=== PATIENT | male | born 1960 | race Hispanic/Latino ===

== ENCOUNTER 2019-11-01 13:19 | Outpatient (CLI) | payer BC ==
--- NOTE | 2019-11-01 15:20 | CT ---
CT Abdomen W WO Con HISTORY: Neoplasm of uncertain behavior right kidney COMPARISON: None. FINDINGS: The lung bases are unremarkable. A tiny calcification gallstone is present. There is decrea sed attenuation of the liver compared to the spleen consistent with fatty infiltration. The spleen, pancreas and adrenal glands appear normal. No calculi are seen in the kidneys, ureters or the urinary bladder. There is a heterogeneously enhanc ing 5.5 x 4.8 x 6 cm exophytic mass arising from the medial aspect of the right inferior pole extending into the central portions of the kidney. No hydroureteronephrosis is seen. A tiny low-densi ty lesion in the left renal cortex is likely cyst. No free air, free fluid or lymphadenopathy seen in the abdomen and pelvis. No renal vein thrombosis i dentified. There are vascular calcifications without evidence of aneurysmal dilatation of the abdominal aorta. There are degenerative changes in the spine. No osteolytic or osteoblastic lesions a re identified. The prostate is enlarged. A normal-appearing appendix is seen. There is colonic diverticulosis. IMPRESSION: 1. Right renal mass suspicious for malignancy. 2. Fatty liver 3. Cholelithiasis 4. Colonic diverticulosis 5. Prostatic enlargement
== END 2019-11-01 13:20 | disposition home or self-care (01) ==
LOC: SCSCT 13:19
PROVIDERS: ATTEND Urology
DX: D41.01 Neoplasm of uncertain behavior of right kidney (principal); N28.89 Other specified disorders of kidney and ureter; K76.0 Fatty (change of) liver, not elsewhere classified; K80.20 Calculus of gallbladder without cholecystitis without obstruction; K57.30 Diverticulosis of large intestine without perforation or abscess without bleeding; N40.0 Benign prostatic hyperplasia without lower urinary tract symptoms
CPT/HCPCS: 74170